=== PATIENT | female | born 2000 | race Hispanic/Latino ===

== ENCOUNTER 2022-01-16 19:26 | Emergency (ER) | payer BC ==
[~2022-01-16] VITALS: Ht 160 cm; Wt 70.3 kg
== END 2022-01-16 20:31 | disposition home or self-care (01) ==
LOC: ER 19:42
DX: O20.0 Threatened abortion (principal); Z3A.01 Less than 8 weeks gestation of pregnancy

== ENCOUNTER 2022-02-09 13:56 | Emergency (ER) | payer BC, MEDICARE ==
[~2022-02-09] VITALS: Ht 160 cm; Wt 70.3 kg
[2022-02-09] MEDS ORDERED: IBUPROFEN 400 MG TAB PO ONE (14:15)
[2022-02-09] MEDS ORDERED: IBUPROFEN600 MG PO (14:57)
[2022-02-09] MEDS ORDERED: BENZONATATE200 MG PO (14:57)
[2022-02-09] MEDS ORDERED: TAMIFLU75 MG PO (14:57)
== END 2022-02-09 15:10 | disposition home or self-care (01) ==
LOC: ER 14:00
DX: U07.1 COVID-19 (principal); J10.1 Influenza due to other identified influenza virus with other respiratory manifestations; R50.9 Fever, unspecified
CPT/HCPCS: 71045; 87400; 99283; U0002